=== PATIENT | female | born 1940 | race Caucasian/White ===

== ENCOUNTER 2018-03-22 12:36 | Inpatient (IN) | payer MEDICARE ==
[~2018-03-22] VITALS: Ht 167.6 cm; Wt 101.2 kg
[~2018-03-22 12:36] MED LIST: AMLO5TAB16 PO; NEBI10TA4 PO; RIVA1TAB PO
--- NOTE | 2018-03-22 13:17 | NUR ---
STROKE ALERT CALLED, DR. DAVID AT BEDSIDE.
[2018-03-22 13:19] LABS: BASOPHILS % (AUTO) 0.2 % (0-1); EOSINOPHILS # (AUTO) 0.1 X10'3 (0-0.9); EOSINOPHILS % (AUTO) 1.6 % (0-6); HEMATOCRIT 45.6 % (35.0-45.0); HEMOGLOBIN 15.5 g/dl (12.0-16.0); LYMPHOCYTES # (AUTO) 1.5 X10'3 (1.1-4.8); LYMPHOCYTES % (AUTO) 20.4 % (21-51); MEAN CORPUSCULAR HGB CONC 33.9 g/dL (33.0-36.5); MEAN CORPUSCULAR VOLUME 91.4 FL (78-98); MEAN PLATELET VOLUME 7.4 FL (7.4-10.4); MONOCYTES # (AUTO) 0.5 X10'3 (0-0.9); MONOCYTES % (AUTO) 7.1 % (2-12); NEUTROPHILS # (AUTO) 5.3 X10'3 (1.8-7.7); NEUTROPHILS % (AUTO) 70.7 % (42-75); PLATELET COUNT 307 X10'3 (140-440); RED BLOOD COUNT 4.99 X10'6 (4.20-5.60); RED CELL DISTRIBUTION WIDTH 13.7 % (11.5-14.5); WHITE BLOOD COUNT 7.5 X10'3 (4.5-11.0)
--- NOTE | 2018-03-22 13:25 | NUR ---
PATIENT TO CT
--- NOTE | 2018-03-22 13:34 | NUR ---
PATIENT BACK FROM CT, STROKE RN AT BEDSIDE.
[2018-03-22 13:35] LABS: ALANINE AMINOTRANSFERASE 34 U/L (12-78); ALBUMIN 3.7 G/DL (3.4-5.0); ALKALINE PHOSPHATASE 138 IU/L (46-116); ANION GAP 12 (8-16); ASPARTATE AMINO TRANSFERASE 21 U/L (10-37); BILIRUBIN,TOTAL 0.5 MG/DL (0.1-1.0); BLOOD UREA NITROGEN 15 MG/DL (7-18); BUN/CREATININE RATIO 15.3 (6.6-38.0); CALCIUM 9.4 MG/DL (8.5-10.1); CHLORIDE 104 MMOL/L (99-107); CREATININE 0.98 MG/DL (0.40-0.90); GLUCOSE 100 MG/DL (70-104); POTASSIUM 4.1 MMOL/L (3.5-5.1); SODIUM 144 MMOL/L (135-145); TOTAL CARBON DIOXIDE 28.2 MMOL/L (24-32); TOTAL PROTEIN 7.3 G/DL (6.4-8.2); eGFR 55 ML/MIN
--- NOTE | 2018-03-22 13:41 | NUR ---
Teleneuro in progress.
--- NOTE | 2018-03-22 14:01 | NUR ---
AWAITING SOC FOR TELENEURO EXAM. PT CONSENTS TO TELEMEDICINE. NIHSS 0 SYMPTOMS RESOLVED. VISITING WITH FRIEND IN ROOM AND DAUGHTER ON PHONE. PASSES SWALLOW SCREEN.
[2018-03-22] MEDS ORDERED: normal saline 1000ml 1,000 ML IV SCH (15:28)
[2018-03-22] MEDS ORDERED: magnesium hydroxide 30ml (MOM) UD suspension PO PRN (15:30)
[2018-03-22] MEDS ORDERED: ondansetron/PF 4mg/2ml inj IV PRN (15:30)
[2018-03-22] MEDS ORDERED: acetaminophen 325mg tablet PO PRN (15:30)
[2018-03-22] MEDS ORDERED: mag hydrox/Alum hydrox/simeth 30ml oral suspension PO PRN (15:30)
[2018-03-22] MEDS ORDERED: aspirin 325mg tablet, delayed-release (Ecotrin) PO ONE (15:30)
[2018-03-22] MEDS ORDERED: AMLO5TAB PO (15:31)
--- NOTE | 2018-03-22 15:31 | NUR ---
PAGED HOSP FOR BED 2 A 2ND TIME AT [phone]
[2018-03-22 16:39] LABS: CHOL/HDL RATIO 3.9 (0.00-4.99); CHOLESTEROL 217 MG/DL (0-200); HDL CHOLESTEROL 55 MG/DL (35-60); LDL CHOLESTEROL 140 MG/DL (50-100); TRIGLYCERIDES 194 MG/DL (20-135)
--- NOTE | 2018-03-22 17:55 | NUR ---
Patient sitting in bed reading her book, denies any need at this time.
--- NOTE | 2018-03-22 19:08 | NUR ---
ECHOCARDIOGRAM COMPLETED. PATIENT AMBULATES TO RESTROOM INDEPENDENTLY WITH A STEADY GAIT. DINNER PROVIDED FOR PATIENT. NO OTHER COMPLAINTS AT THIS TIME.
--- NOTE | 2018-03-22 19:48 | NUR ---
PATIENT REQUESTING TO LEAVE AMA. PATIENT REPORTS FEELING BETTER AND THAT, "I'LL FOLLOW UP WITH MY REGULAR DOCTOR ABOUT ALL OF THIS." I CONTACTED DR. MALDONADO AND UPDATED HIM ON THE PATIENT'S SITUATION WHO REQUESTS THAT I REITERATE TO THE PATIENT THAT BASED ON HER SITUATION SHE IS STILL AT HIGH RISK FOR STROKE WITHOUT TREATMENT AND THAT LEAVING COULD POTENTIALLY RESULT IN SERIOUS IRREPERABLE INJURY OR . PATIENT REMAINS ADAMANT ABOUT LEAVING. SHE IS CURRENTLY ALERT AND ORIENTED X4 AND PERFECTLY CAPABLE OF TAKING CARE OF HER ADLS. SHE AMBULATES INDEPENDENTLY WITH A STEADY GAIT AND VERBALIZES THE UNDERSTANDING OF THE INFORMATION I HAVE PROVIDED AND ACCEPTS THE RISK OF LEAVING THE HOSPITAL PREMATURELY.
[2018-03-22 19:59] VITALS: BP 179/71
[2018-03-22] MEDS ORDERED: heparin, porcine 5000 units/ml vial SQ SCH (20:00)
[2018-03-23] MEDS ORDERED: aspirin 81mg tablet.DR PO SCH (08:00)
[2018-03-23] MEDS ORDERED: atorvastatin 10mg tablet PO SCH (08:00)
== END 2018-03-22 19:59 | disposition left against medical advice (07) | DRG 69 ==
LOC: ER 12:37 → ED HOLD 15:28
PROVIDERS: ADMIT Family Medicine; ATTEND Family Medicine
DX: G45.9 Transient cerebral ischemic attack, unspecified (principal); G45.4 Transient global amnesia; I10 Essential (primary) hypertension; Z86.711 Personal history of pulmonary embolism; Z87.440 Personal history of urinary (tract) infections
CPT/HCPCS: 36415; 70450; 70544; 70551; 71045; 80053; 80061; 82948; 84484; 85025; 93005; 93306; 99285; G0378